=== PATIENT | female | born 1950 | race Caucasian/White ===

== ENCOUNTER → 2018-12-26 12:47 | Outpatient (CLI) | payer MEDICARE, OTHER, SELFPAY ==
--- NOTE | 2018-12-26 | US_ITS ---
US FNA Thyroid HISTORY: ITS.REASON: LEFT THYROID MASS ORDERING PHYSICIAN: Juan Sam MD PATIENT AGE: 68 years COMPARISON: 12/26/2018 TECHNIQUE: Following obtaining informed consent, using aseptic technique and local anesthesia with buffered lidocaine, fine-needle aspiration was performed of the large nodule in the lower pole the left lobe of the thyroid gland using sonographic guidance. 3 passes were made into the nodule 2 passes with a 25-gauge needle and one pass with a 21-gauge needle. Specimen was given to cytology. The patient tolerated the procedure well without evidence of immediate complications and left the ultrasound suite in stable condition. CYTOLOGY:Pending IMPRESSION: Uneventful sonographic guided left thyroid mass fine needle aspiration. Cytology pending
--- NOTE | 2018-12-26 12:57 | US_ITS ---
US thyroid HISTORY: ITS.REASON: THYROID NODU;E ORDERING PHYSICIAN: Juan Sam MD PATIENT AGE: 68 years Comparison: None FINDINGS: The right lobe is 5 x 1.8 x 1.5 cm. Heterogeneous echogenicity is noted. In the upper pole there is a 4 mm hypoechoic nodule. A mixed iso to slightly hypoechoic nodules present in the mid polar region 5 mm. In the lower pole and a 6 mm slightly hypoechoic nodule. The left lobe is 8 x 3.3 x 1.9 cm. In the lower pole there is a 5 x 3.5 cm heterogeneous mass which is slightly hypoechoic and not well-defined. The isthmus is thickened at 1 cm with a 15 mm slightly hypoechoic nodule along the inferior aspect of the isthmus. IMPRESSION 1. Dominant 5 cm mass along the lower pole the left lobe of thyroid gland which was targeted for biopsy. 2. Other smaller nodules are present in the right lobe and the isthmus.
== END ==
PROVIDERS: PCP Family Medicine; Visit Provider Otolaryngology
DX: D34 Benign neoplasm of thyroid gland (principal)
CPT/HCPCS: 10005; 76536; 76942; 88173